=== PATIENT | male | born 1970 | race Caucasian/White ===

== ENCOUNTER 2018-06-25 13:15 | Emergency (ER) | payer OTHER ==
[~2018-06-25] VITALS: Wt 149.4 kg
[2018-06-25] MEDS ORDERED: NSAID PO (13:27)
[2018-06-25 13:51] LABS: HEMATOCRIT 41.8 % (42.0-52.0); HEMOGLOBIN 14.4 g/dL (13.5-18.0); MEAN CELL VOLUME 88 fl (78-100); MEAN CORPUSCULAR HEMOGLOBIN 30 pg (27-31); MEAN CORPUSCULAR HGB CONC 34 g/dL (33-37); MEAN PLATELET VOLUME 10.7 fl (7.4-10.4); PLATELET COUNT 154 K/mm3 (130-400); RED BLOOD COUNT 4.73 M/mm3 (4.20-5.60); RED CELL DISTRIBUTION WIDTH 13.7 % (11.5-14.5); WHITE BLOOD COUNT 11.7 K/mm3 (4.8-10.8)
[2018-06-25 14:04] LABS: BAND 15 % (0-10); LYMPHOCYTE 8 % (20-51); MONOCYTE 4 % (3-10); NEUTROPHILS 73 % (42-75)
[2018-06-25 14:10] LABS: ALBUMIN 3.6 g/dL (3.5-5.0); CALCIUM 8.4 mg/dL (8.4-10.2); POTASSIUM 3.6 mmol/L (3.6-5.0); TOTAL BILIRUBIN 0.8 mg/dL (0.2-1.3); TOTAL PROTEIN 7.2 g/dL (6.3-8.2)
[2018-06-25] MEDS ORDERED: NORCO 325 MG-51 TA1 PO (15:30)
[2018-06-25] MEDS ORDERED: CLEOCIN HCL300 MG PO (15:30)
[2018-06-25 16:25] VITALS: BP 126/70
== END 2018-06-25 16:27 | disposition home or self-care (01) ==
LOC: ED 13:15
PROVIDERS: Nurse Practitioner
DX: L03.116 Cellulitis of left lower limb (principal); F17.220 Nicotine dependence, chewing tobacco, uncomplicated
CPT/HCPCS: J0690; J2270; J2405; J7030

== ENCOUNTER 2018-07-07 11:06 | Outpatient (RCR) | payer OTHER ==
[~2018-07-07] VITALS: Ht 182.9 cm; Wt 149.4 kg
[~2018-07-07 11:06] MED LIST: CLEOCIN HCL300 MG PO; NORCO 325 MG-51 TA1 PO; NSAID PO
[2018-07-07 11:49] VITALS: BP 117/71
--- NOTE | 2018-07-07 11:51 | NUR ---
PT ARRIVES FOR OUTPATIENT WOUND DRESSING CHANGE, WE DO NOT HAVE THE APPROPRIATE SIZE OF SUPPLIES NEEDED WOUND IS LARGER THAN NOTIFIED, PT HAS A DRESSING INTACT FROM [facility] THAT WAS PLACED ON TUESDAY AND ORDERED TO CHANGE EVERY WEEK, AT THIS TIME CURRENT DRESSING WAS LEFT IN PLACE AND ABD/KERLIX/FEDERICO WRAP APPLIED TO SUPPORT DRAINAGE, WOUND COVERS THE ENTIRE LOWER HALF OF PATIENTS LEFT LEG FROM KNEE DOWN, MULTIPLE SPOTS OF ESCHAR, LARGE AMOUNTS OF OOZING AND DRAINAGE, PT AND FULLY ALERT AND ORIENTED AND HIGHLY EDUCATED ON WOUND CARE PER [facility] STAY, AT THIS TIME PT REQUESTING A REFERRAL TO WOUND CARE CLINIC IN [place] HE STATES HE WANTS THE APPROPRIATE EYES MONITORING THIS SITE SO HE DOESNT LOSE HIS LEG, CALL TO [facility] AT THIS TIME, FATOU RN WITH [facility] STATES TO SENT PT HOME AND SHE IS GOING TO CALL WOUND CLINIC RIGHT NOW TO PLACE REFERRAL, PT IS EDUCATED THAT HE WILL HEAR FROM EITHER [facility] OR WOUND CARE CLINIC IN [place] SHORTLY
== END 2018-10-05 | disposition home or self-care (01) ==
LOC: AMSURD
DX: Z48.00 Encounter for change or removal of nonsurgical wound dressing (principal); S81.802A Unspecified open wound, left lower leg, initial encounter

== ENCOUNTER 2020-03-27 09:30 | Outpatient (RCR) | payer MEDICARE | END 2020-03-27 10:00 | disposition still patient (30) | LOC: PT 09:30 | DX: M17.32 Unilateral post-traumatic osteoarthritis, left knee (principal) ==

== ENCOUNTER 2020-08-18 09:00 | Outpatient (RCR) | payer MEDICARE | END 2020-09-15 | disposition home or self-care (01) | LOC: PT | DX: M54.16 Radiculopathy, lumbar region (principal) ==

== ENCOUNTER 2020-12-31 08:33 | Outpatient (RCR) | payer MEDICARE | END 2021-03-31 | LOC: PT | DX: Z96.641 Presence of right artificial hip joint (principal) ==

== ENCOUNTER 2022-06-21 09:54 | Outpatient (RCR) | payer MEDICARE | END 2022-07-12 | LOC: PT | DX: M54.2 Cervicalgia (principal) ==

== ENCOUNTER → 2022-07-12 | Outpatient (RCR) | payer MEDICARE ==
[2022-07-09 16:20] VITALS: BP 119/73
[2022-07-10 16:10] VITALS: BP 116/54
[2022-07-11 16:45] VITALS: BP 117/75
[~2022-07-12] VITALS: Ht 177.8 cm; Wt 125.0 kg
[2022-07-12 16:16] VITALS: BP 123/70
== END ==
LOC: AMSURD → EDSTATUS 07-09 16:05 → AMSURD 07-09 16:06
DX: L02.415 Cutaneous abscess of right lower limb (principal)
CPT/HCPCS: J0696; J0878

== ENCOUNTER → 2022-07-19 | Outpatient (CLI) | payer MEDICARE ==
[2022-07-19 16:58] LABS: HEMATOCRIT 28.2 % (42.0-52.0); HEMOGLOBIN 9.1 g/dL (13.5-18.0); MEAN PLATELET VOLUME 9.5 fl (7.4-10.4); RED BLOOD COUNT 3.14 M/mm3 (4.20-5.60); RED CELL DISTRIBUTION WIDTH 17.4 % (11.5-14.5); WHITE BLOOD COUNT 9.3 K/mm3 (4.8-10.8)
[2022-07-19 17:01] LABS: ALBUMIN 3.4 g/dL (3.5-5.0); POTASSIUM 4.3 mmol/L (3.5-5.1)
[2022-07-19 17:02] LABS: CALCIUM 8.7 mg/dL (8.3-10.5)
[2022-07-19 17:04] LABS: TOTAL PROTEIN 7.2 g/dL (6.4-8.3)
[2022-07-19 17:13] LABS: TOTAL BILIRUBIN 0.1 mg/dL (0.2-1.2)
== END ==
LOC: LAB 16:23
PROVIDERS: Internal Medicine Infectious Disease
DX: L02.415 Cutaneous abscess of right lower limb (principal)

== ENCOUNTER → 2022-08-11 | Outpatient (RCR) | payer MEDICARE ==
[2022-07-13 16:04] VITALS: BP 124/77
[2022-07-14 16:11] VITALS: BP 117/78
--- NOTE | 2022-07-15 16:30 | NUR ---
PATIENT REPORTS PICC LINE INSERTION SITE IRRITATION AND PAIN STARTED LAST NIGHT. THIS NURSE ASSESSED AREA AND PICC LINE INSERTION SITE SLIGHTLY RED WITH DRIED EXUDATE. PICC FLUSHED WELL WITH BLOOD RETURN. PICC LINE DRESSING AND CAP CHANGE PERFORMED AT THIS TIME. PT STATES "IT FEELS BETTER ALREADY." EDUCATED PATIENT TO REPORT ANY OTHER SYMPTOMS INCLUDING INCREASED REDNESS, PAIN, OR FEVER. PATIENT VERBALIZES UNDERSTANDING.
[2022-07-15 16:31] VITALS: BP 120/73
[2022-07-16 16:11] VITALS: BP 122/83
[2022-07-17 16:40] VITALS: BP 124/75
[2022-07-18 16:21] VITALS: BP 133/72
[2022-07-20 16:15] VITALS: BP 131/80
[2022-07-21 16:13] VITALS: BP 118/78
[2022-07-22 16:24] VITALS: BP 119/74
[2022-07-23 16:21] VITALS: BP 133/74
[2022-07-24 16:25] VITALS: BP 132/73
[2022-07-26 16:43] VITALS: BP 128/78
[2022-07-27 16:11] VITALS: BP 127/75
[2022-07-28 20:22] VITALS: BP 134/98
[2022-07-30 17:43] VITALS: BP 137/80
[2022-07-31 20:50] VITALS: BP 154/95
[2022-08-01 18:28] VITALS: BP 130/77
[2022-08-02 16:31] VITALS: BP 123/81
[2022-08-03 17:15] VITALS: BP 125/71
[2022-08-04 16:00] VITALS: BP 126/70
[2022-08-05 16:33] VITALS: BP 126/84
[2022-08-06 16:05] VITALS: BP 120/74
[2022-08-07 15:49] VITALS: BP 117/81
--- NOTE | 2022-08-07 15:52 | NUR ---
EDGES OF DRESSING LIFTING. DRESSING REINFORCED WITH BENZOINE AND MEPELEX TAPE.
[2022-08-08 16:14] VITALS: BP 135/82
[2022-08-09 16:20] VITALS: BP 126/78
[2022-08-10 16:24] VITALS: BP 121/78
[~2022-08-11] VITALS: Ht 177.8 cm; Wt 125.0 kg
[2022-08-11 18:24] VITALS: BP 120/75
== END | disposition home or self-care (01) ==
LOC: AMSURD
DX: L02.415 Cutaneous abscess of right lower limb (principal)
CPT/HCPCS: J0696; J0878

== ENCOUNTER → 2022-08-16 | Outpatient (CLI) | payer MEDICARE ==
[2022-08-16 16:59] LABS: HEMATOCRIT 37.4 % (42.0-52.0); HEMOGLOBIN 12.1 g/dL (13.5-18.0); MEAN PLATELET VOLUME 10.7 fl (7.4-10.4); RED BLOOD COUNT 4.14 M/mm3 (4.20-5.60); RED CELL DISTRIBUTION WIDTH 15.9 % (11.5-14.5); WHITE BLOOD COUNT 8.8 K/mm3 (4.8-10.8)
[2022-08-16 17:46] LABS: ALBUMIN 3.8 g/dL (3.5-5.0); POTASSIUM 4.2 mmol/L (3.5-5.1)
[2022-08-16 17:49] LABS: TOTAL PROTEIN 7.3 g/dL (6.4-8.3)
[2022-08-16 17:50] LABS: TOTAL BILIRUBIN 0.2 mg/dL (0.2-1.2)
== END ==
LOC: LAB 15:59
PROVIDERS: Internal Medicine Infectious Disease
DX: L02.415 Cutaneous abscess of right lower limb (principal)

== ENCOUNTER → 2023-05-12 | Outpatient (RCR) | payer MEDICARE ==
[2023-04-28 13:45] VITALS: BP 146/74
[2023-05-05 15:53] VITALS: BP 130/81
[~2023-05-12] VITALS: Ht 177.8 cm; Wt 125.0 kg
== END | disposition home or self-care (01) ==
LOC: AMSURD
DX: M00.9 Pyogenic arthritis, unspecified (principal)
CPT/HCPCS: 19898

== ENCOUNTER → 2023-05-19 | Outpatient (CLI) | payer MEDICARE ==
[2023-05-19 14:45] LABS: HEMATOCRIT 33.2 % (42.0-52.0); HEMOGLOBIN 10.4 g/dL (13.5-18.0); MEAN PLATELET VOLUME 9.9 fl (7.4-10.4); RED BLOOD COUNT 3.92 M/mm3 (4.20-5.60); RED CELL DISTRIBUTION WIDTH 14.6 % (11.5-14.5); WHITE BLOOD COUNT 7.8 K/mm3 (4.8-10.8)
[2023-05-19 14:46] LABS: ALBUMIN 3.5 g/dL (3.5-5.0); POTASSIUM 4.6 mmol/L (3.5-5.1)
[2023-05-19 14:47] LABS: CALCIUM 9.1 mg/dL (8.3-10.5)
[2023-05-19 14:49] LABS: TOTAL PROTEIN 7.2 g/dL (6.4-8.3)
[2023-05-19 14:50] LABS: TOTAL BILIRUBIN 0.2 mg/dL (0.2-1.2)
== END ==
LOC: LAB 13:51
DX: M00.862 Arthritis due to other bacteria, left knee (principal)

== ENCOUNTER 2023-05-26 13:37 | Outpatient (RCR) | payer MEDICARE ==
[2023-05-19 13:50] VITALS: BP 136/74
[~2023-05-26] VITALS: Ht 177.8 cm; Wt 125.0 kg
== END 2023-06-11 | disposition home or self-care (01) ==
LOC: AMSURD
DX: M00.862 Arthritis due to other bacteria, left knee (principal)

== ENCOUNTER → 2023-05-26 | Outpatient (CLI) | payer MEDICARE ==
[2023-05-26 14:08] LABS: BASO # 0.01 K/mm3 (0.02-0.10); EOS # 0.21 K/mm3 (0.04-0.40); HEMATOCRIT 34.7 % (42.0-52.0); HEMOGLOBIN 10.7 g/dL (13.5-18.0); LYMPH# 1.55 K/mm3 (1.50-4.00); MEAN CELL VOLUME 85 fl (78-100); MEAN CORPUSCULAR HEMOGLOBIN 26 pg (27-31); MEAN CORPUSCULAR HGB CONC 31 g/dL (33-37); MEAN PLATELET VOLUME 9.6 fl (7.4-10.4); MONO # 0.24 K/mm3 (0.20-0.80); NEU # 5.03 K/mm3 (1.40-6.50); PLATELET COUNT 327 K/mm3 (130-400); RED CELL DISTRIBUTION WIDTH 14.4 % (11.5-14.5)
[2023-05-26 14:15] LABS: POTASSIUM 4.1 mmol/L (3.5-5.1)
[2023-05-26 14:16] LABS: CALCIUM 8.8 mg/dL (8.3-10.5)
[2023-05-26 14:18] LABS: TOTAL PROTEIN 7.1 g/dL (6.4-8.3)
[2023-05-26 14:32] LABS: ALBUMIN 3.6 g/dL (3.5-5.0)
[2023-05-26 14:57] LABS: TOTAL BILIRUBIN 0.1 mg/dL (0.2-1.2)
== END ==
LOC: LAB 13:42
DX: M00.862 Arthritis due to other bacteria, left knee (principal)

== ENCOUNTER → 2023-07-05 | Outpatient (CLI) | payer MEDICARE ==
[2023-07-05 14:05] LABS: HEMATOCRIT 27.8 % (42.0-52.0); HEMOGLOBIN 8.5 g/dL (13.5-18.0); MEAN PLATELET VOLUME 8.8 fl (7.4-10.4); RED BLOOD COUNT 3.49 M/mm3 (4.20-5.60); RED CELL DISTRIBUTION WIDTH 14.9 % (11.5-14.5); WHITE BLOOD COUNT 8.6 K/mm3 (4.8-10.8)
[2023-07-05 14:14] LABS: ALBUMIN 3.6 g/dL (3.5-5.0)
[2023-07-05 14:16] LABS: CALCIUM 8.9 mg/dL (8.3-10.5)
[2023-07-05 14:17] LABS: TOTAL PROTEIN 7.3 g/dL (6.4-8.3)
[2023-07-05 17:33] LABS: TOTAL BILIRUBIN 0.2 mg/dL (0.2-1.2)
== END ==
LOC: LAB 13:27
DX: T84.53XA Infection and inflammatory reaction due to internal right knee prosthesis, initial encounter (principal)

== ENCOUNTER → 2023-07-12 | Outpatient (CLI) | payer MEDICARE ==
[2023-07-12 16:32] LABS: HEMATOCRIT 27.7 % (42.0-52.0); HEMOGLOBIN 8.6 g/dL (13.5-18.0); MEAN PLATELET VOLUME 9.3 fl (7.4-10.4); RED BLOOD COUNT 3.63 M/mm3 (4.20-5.60); RED CELL DISTRIBUTION WIDTH 14.9 % (11.5-14.5); WHITE BLOOD COUNT 7.2 K/mm3 (4.8-10.8)
[2023-07-12 16:34] LABS: ALBUMIN 3.6 g/dL (3.5-5.0)
[2023-07-12 16:35] LABS: CALCIUM 8.9 mg/dL (8.3-10.5)
[2023-07-12 16:36] LABS: TOTAL PROTEIN 7.3 g/dL (6.4-8.3)
[2023-07-12 16:38] LABS: TOTAL BILIRUBIN 0.2 mg/dL (0.2-1.2)
== END ==
LOC: LAB 15:20
PROVIDERS: Student in an Organized Health Care Education/Training Program
DX: T84.53XA Infection and inflammatory reaction due to internal right knee prosthesis, initial encounter (principal)

== ENCOUNTER 2023-09-06 09:08 | Outpatient (RCR) | payer MEDICARE ==
[~2023-09-06 09:08] MED LIST changes: +ACETAMINOPHEN-H1 TA2 PO
== END 2023-09-11 ==
LOC: PT
DX: T84.50XD Infection and inflammatory reaction due to unspecified internal joint prosthesis, subsequent encounter (principal); Z96.652 Presence of left artificial knee joint

== ENCOUNTER 2023-09-12 08:00 | Outpatient (RCR) | payer MEDICARE | END 2023-10-12 | disposition home or self-care (01) | LOC: PT | DX: T84.50XD Infection and inflammatory reaction due to unspecified internal joint prosthesis, subsequent encounter (principal) ==

== ENCOUNTER → 2024-03-05 | Outpatient (CLI) | payer MEDICARE ==
[~2024-03-05] MED LIST changes: +ADULT ASPIRIN R81 MG PO; +ROXICODONE 55 MG/TAB PO; +TIZANIDINE HYDRO2 M1 PO
[2024-03-05 16:26] LABS: BASO # 0.02 K/mm3 (0.02-0.10); EOS # 0.25 K/mm3 (0.04-0.40); EOS % 3.4 % (0.0-4.0); HEMATOCRIT 36.9 % (42.0-52.0); LYMPH# 1.46 K/mm3 (1.50-4.00); MEAN CELL VOLUME 83 fl (78-100); MEAN CORPUSCULAR HEMOGLOBIN 27 pg (27-31); MEAN CORPUSCULAR HGB CONC 33 g/dL (33-37); MEAN PLATELET VOLUME 9.8 fl (7.4-10.4); MONO # 0.44 K/mm3 (0.20-0.80); NEU # 5.27 K/mm3 (1.40-6.50); PLATELET COUNT 311 K/mm3 (130-400); RED BLOOD COUNT 4.44 M/mm3 (4.20-5.60); RED CELL DISTRIBUTION WIDTH 14.4 % (11.5-14.5); WHITE BLOOD COUNT 7.4 K/mm3 (4.8-10.8)
[2024-03-05 16:30] LABS: ALBUMIN 3.5 g/dL (3.5-5.0)
[2024-03-05 16:32] LABS: CALCIUM 8.9 mg/dL (8.3-10.5)
[2024-03-05 16:33] LABS: TOTAL PROTEIN 6.7 g/dL (6.4-8.3)
[2024-03-05 16:35] LABS: TOTAL BILIRUBIN 0.2 mg/dL (0.2-1.2)
== END ==
LOC: LAB 15:22
DX: T84.54XA Infection and inflammatory reaction due to internal left knee prosthesis, initial encounter (principal)

== ENCOUNTER 2024-03-14 14:36 | Outpatient (RCR) | payer MEDICARE | END 2024-04-11 | disposition home or self-care (01) | LOC: PT | DX: Z89.612 Acquired absence of left leg above knee (principal) | CPT/HCPCS: G0283-GP ==

== ENCOUNTER → 2024-03-19 | Outpatient (CLI) | payer MEDICARE ==
[2024-03-19 15:44] LABS: BASO # 0.03 K/mm3 (0.02-0.10); EOS # 0.22 K/mm3 (0.04-0.40); EOS % 3.1 % (0.0-4.0); HEMATOCRIT 40.1 % (42.0-52.0); MEAN CELL VOLUME 84 fl (78-100); MEAN CORPUSCULAR HEMOGLOBIN 27 pg (27-31); MEAN CORPUSCULAR HGB CONC 32 g/dL (33-37); NEU # 5.03 K/mm3 (1.40-6.50); PLATELET COUNT 298 K/mm3 (130-400); RED BLOOD COUNT 4.76 M/mm3 (4.20-5.60); RED CELL DISTRIBUTION WIDTH 14.9 % (11.5-14.5); WHITE BLOOD COUNT 7.2 K/mm3 (4.8-10.8)
[2024-03-19 15:54] LABS: ALBUMIN 3.8 g/dL (3.5-5.0)
[2024-03-19 15:55] LABS: CALCIUM 9.2 mg/dL (8.3-10.5)
[2024-03-19 15:56] LABS: TOTAL PROTEIN 6.7 g/dL (6.4-8.3)
[2024-03-19 15:58] LABS: TOTAL BILIRUBIN 0.4 mg/dL (0.2-1.2)
== END ==
LOC: LAB 15:22
PROVIDERS: Student in an Organized Health Care Education/Training Program
DX: T84.54XA Infection and inflammatory reaction due to internal left knee prosthesis, initial encounter (principal)

== ENCOUNTER → 2024-03-26 | Outpatient (CLI) | payer MEDICARE ==
[2024-03-26 16:06] LABS: BASO # 0.03 K/mm3 (0.02-0.10); EOS # 0.26 K/mm3 (0.04-0.40); EOS % 4.2 % (0.0-4.0); HEMATOCRIT 41.2 % (42.0-52.0); HEMOGLOBIN 13.4 g/dL (13.5-18.0); LYMPH# 1.58 K/mm3 (1.50-4.00); MEAN CELL VOLUME 85 fl (78-100); MEAN CORPUSCULAR HEMOGLOBIN 28 pg (27-31); MEAN CORPUSCULAR HGB CONC 33 g/dL (33-37); MEAN PLATELET VOLUME 10.2 fl (7.4-10.4); NEU # 4.06 K/mm3 (1.40-6.50); PLATELET COUNT 270 K/mm3 (130-400); RED BLOOD COUNT 4.87 M/mm3 (4.20-5.60); RED CELL DISTRIBUTION WIDTH 15.4 % (11.5-14.5); WHITE BLOOD COUNT 6.2 K/mm3 (4.8-10.8)
[2024-03-26 16:17] LABS: CALCIUM 9.6 mg/dL (8.3-10.5)
[2024-03-26 16:19] LABS: TOTAL PROTEIN 6.9 g/dL (6.4-8.3)
[2024-03-26 16:20] LABS: TOTAL BILIRUBIN 0.4 mg/dL (0.2-1.2)
== END ==
LOC: LAB 09:39
PROVIDERS: Student in an Organized Health Care Education/Training Program
DX: T84.54XA Infection and inflammatory reaction due to internal left knee prosthesis, initial encounter (principal)